=== PATIENT | female | born 1955 | race Caucasian/White ===

== ENCOUNTER 2024-05-01 14:05 | Outpatient (CLI) | payer MEDICARE, SELFPAY | END 2024-05-01 14:06 | disposition home or self-care (01) | LOC: NFLDREF 05-17 16:18 | PROVIDERS: PCP Family Medicine; Referring Provider Family Medicine; Visit Provider Internal Medicine Nephrology | DX: N18.2 Chronic kidney disease, stage 2 (mild) (principal); I70.1 Atherosclerosis of renal artery | CPT/HCPCS: 82043; 82570; 87086 ==

== ENCOUNTER 2024-05-16 14:36 | Outpatient (CLI) | payer MEDICARE, SELFPAY ==
--- NOTE | 2024-05-16 15:00 | CRLHL7_ITS ---
For Patients: As a result of the Century Cures Act, medical imaging exams and procedure reports are released immediately into your electronic medical record. You may view this report before your referring provider. If you have questions, please contact your health care provider. INDICATION: Atherosclerosis of renal artery TECHNIQUE: Grayscale, color Doppler and power Doppler ultrasound of the renal arteries performed. COMPARISON: None available FINDINGS: BILATERAL RENAL ARTERY DUPLEX ULTRASOUND ABDOMINAL AORTA: Peak systolic velocity = 112 cm/s. No aortic aneurysm. RIGHT KIDNEY: 9.7 cm in length. There is no hydronephrosis. Peak systolic velocity = 143 cm/second Renal artery to aortic peak systolic velocity ratio = 1.3 Resistive indices: 0.7 Renal vein = patent LEFT KIDNEY: 8.9 cm in length. There is no hydronephrosis. Peak systolic velocity = 210 cm/second Renal artery to aortic peak systolic velocity ratio = 1.9 Resistive indices: 0.6-0.7 Renal vein = patent IMPRESSION: Elevated velocity within the mid left renal artery measuring 210 cm/seconds in although the renal artery ratio is normal. The waveform is not particularly abnormal. Further evaluation with CTA could be considered. Normal right renal artery measurements. Dictated by Sagar Dallas MD @ 05/17/2024 11:28:34 AM (Electronically Signed)
== END 2024-05-16 14:37 | disposition home or self-care (01) ==
LOC: US 14:40
PROVIDERS: PCP Family Medicine; Visit Provider Internal Medicine Nephrology
DX: I70.1 Atherosclerosis of renal artery (principal)
CPT/HCPCS: 76775; 93975